=== PATIENT | male | born 1985 | race Caucasian/White ===

== ENCOUNTER → 2020-05-18 10:24 | Outpatient (BNVA) | payer SELFPAY | PROVIDERS: Visit Provider Nurse Practitioner Family | DX: J02.9 Acute pharyngitis, unspecified (principal) | CPT/HCPCS: 87071; 87880 ==

== ENCOUNTER → 2024-03-07 08:48 | Outpatient (BNVA) | payer MEDICAID, SELFPAY | PROVIDERS: Visit Provider Orthopaedic Surgery | DX: M54.2 Cervicalgia (principal) | CPT/HCPCS: 72050 ==

== ENCOUNTER 2024-04-04 07:55 | Outpatient (CLI) | payer MEDICAID, SELFPAY ==
--- NOTE | 2024-04-04 08:00 | MR_ITS ---
WS: [id number] MRI CERVICAL SPINE NONCONTRAST HISTORY: neck pain COMPARISON: None available. Technique: Multiplanar, multisequence noncontrast imaging of the cervical spine. Normal cervical alignment with no compression fracture or significant disc space narrowing. Signal within the cervical cord is normal. CSF containing mass in the retrocerebellar region is most likely an arachnoid cyst. Craniocervical junction, C1 and C2 relationship, odontoid process and soft tissues are normal. C2-C3: Normal. C3-C4: Normal. C4-C5: Mild disc bulging with a shallow central disc protrusion. Mild facet arthritis. Very mild narr owing of the foramina but no significant stenosis. C5-C6: Very minimal facet arthritis. No stenosis. C6-C7: Mild disc bulging. Bilateral neural foraminal disc osteophyte complexes, LEFT greater than RIG HT. LEFT foraminal disc osteophyte resulting in moderate stenosis and mild stenosis on the RIGHT. C7-T1: Normal. Paraspinal soft tissue are normal. MR/MR cervical spin wo con* [id number] IMPRESSION: 1. 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 Disc osteophyte complex causing s tenosis. 2. Smaller disc osteophyte complex RIGHT foramen of C6-7 with mild stenosis. 3. Very shallow central disc protrusion at C3-4 with no stenosis.
== END 2024-04-04 07:56 | disposition home or self-care (01) ==
LOC: RAD 07:56
PROVIDERS: PCP Physician Assistant; Visit Provider Orthopaedic Surgery
DX: M50.321 Other cervical disc degeneration at C4-C5 level (principal); M48.02 Spinal stenosis, cervical region
CPT/HCPCS: 72141

== ENCOUNTER 2025-07-09 05:00 | Outpatient (RCR) | payer MEDICAID, SELFPAY | END 2025-08-08 23:59 | disposition home or self-care (01) | LOC: SPT 05:00 | PROVIDERS: Visit Provider Orthopaedic Surgery | DX: M54.9 Dorsalgia, unspecified (principal); G89.29 Other chronic pain | CPT/HCPCS: 97161; 97530 ==

== ENCOUNTER → 2025-07-17 09:01 | Outpatient (BNVA) | payer MEDICAID, SELFPAY | PROVIDERS: PCP Physician Assistant; Visit Provider Orthopaedic Surgery | DX: M54.9 Dorsalgia, unspecified (principal); G89.29 Other chronic pain | CPT/HCPCS: 72110 ==